=== PATIENT | male | born 1960 | race Caucasian/White ===

== ENCOUNTER → 2025-06-06 | Outpatient (CLI) | payer MEDICARE, OTHER, SELFPAY ==
--- NOTE | 2025-06-06 12:54 | ECHOD_ITS ---
Reason For Study Reason For Study: DYSPNEA/SOB Procedure This was a 2D Doppler, Color Flow transthoracic echocardiogram. Exam performed in department. Left Ventricle Normal LV size. Left ventricular systolic function is normal. The left ventricular ejection fraction is 60 %. Stage 1 diastolic dysfunction. No regional wall motion abnormalities noted. Right Ventricle Normal RV size. Normal systolic function. Atria Normal left atrium. Normal right atrium. Mitral Valve Normal mitral valve. Tricuspid Valve Normal tricuspid valve. Mild (1+) tricuspid valve insufficiency. Pulmonary artery systolic pressure is 24 mmHg. Aortic Valve Trisinus/trileaflet aortic valve. Moderate focal aortic valve calcification. Peak aortic valve gradient 15 mmHg. Mean aortic valve gradient 8 mmHg. Mild (1+) aortic valve insufficiency. Pulmonic Valve Normal pulmonic valve. Great Vessels Normal aortic root. The pulmonary artery is normal size. Inferior vena cava collapse with respiration. Pericardium/Pleural No pericardial effusion. MMode/2D Measurements & Calculations LVIDd: 5.0 cm IVSd: 1.0 cm LVOT diam: 2.0 cm LVIDs: 3.4 cm LVPWd: 1.0 cm LVOT area: 3.1 cm2 RVDd: 3.7 cm FS: 33.0 % Ao root diam: 3.2 cm LAV(MOD-bp): 56.4 ml LVAd ap4: 25.3 cm2 LAV(MOD-bp) Indexed: 27.8 ml/m2 LVLd ap4: 7.7 cm LAV(MOD-sp2): 52.5 ml EDV(MOD-sp4): 70.1 ml LAV(MOD-sp4): 52.4 ml EDV(sp4-el): 70.9 ml LVAs ap4: 14.3 cm2 LVLs ap4: 6.3 cm ESV(MOD-sp4): 30.0 ml ESV(sp4-el): 27.5 ml EF(MOD-sp4): 57.2 % EF(sp4-el): 61.3 % SV(MOD-sp4): 40.1 ml SV(sp4-el): 43.5 ml LA A4 area: 18.9 cm2 SI(MOD-sp4): 19.8 ml/m2 LA dimension(2D): 4.5 cm RA A4 area: 15.3 cm2 TAPSE: 1.8 cm Time Measurements MV dec time: 0.19 sec Doppler Measurements & Calculations MV E max willy: 87.3 cm/sec Lat Peak E' Willy: 10.0 cm/sec Med Peak E' Willy: 8.0 cm/sec MV A max willy: 95.9 cm/sec E/E' lat: 8.7 E/E' med: 11.0 MV E/A: 0.91 MV V2 max: 86.3 cm/sec MV P1/2t max willy: 81.5 cm/sec Ao V2 max: 195.3 cm/sec MV max P.0 mmHg MV P1/2t: 96.1 msec Ao max P.3 mmHg MV V2 mean: 49.5 cm/sec Ao V2 mean: 134.0 cm/sec MV mean P.1 mmHg MV dec slope: 248.5 cm/sec2 Ao mean P.0 mmHg MV V2 VTI: 31.0 cm MVA(P1/2t): 2.3 cm2 Ao V2 VTI: 42.7 cm AV (velocity ratio): 0.55 MVA(VTI): 2.4 cm2 MARKO(I,D): 1.7 cm2 MARKO(V,D): 1.6 cm2 AI max willy: 437.0 cm/sec LV V1 max: 102.6 cm/sec SV(LVOT): 72.9 ml AI max P.4 mmHg LV V1 max P.2 mmHg LV V1 mean P.3 mmHg AI dec slope: 184.3 cm/sec2 LV V1 mean: 72.9 cm/sec AI P1/2t: 694.5 msec LV V1 VTI: 23.4 cm PA V2 max: 95.1 cm/sec TR max willy: 224.1 cm/sec PA V2 mean: 66.4 cm/sec TR max P.1 mmHg ECHO/Echo Complete Interpretation Summary Normal LV size. Left ventricular systolic function is normal. The left ventricular ejection fraction is 60 %. Moderate focal aortic valve calcification. Mean aortic valve gradient 8 mmHg. Mild (1+) aortic valve insufficiency. Stage 1 diastolic dysfunction. Ordering Physician: Alvino Contreras Referring Physician: Twin Sims Performed By: Sienna Kinsey, RDCS, RVT
== END | disposition home or self-care (01) ==
LOC: CVS 12:53
PROVIDERS: PCP Student in an Organized Health Care Education/Training Program; Referring Provider Internal Medicine Critical Care Medicine; Visit Provider Internal Medicine Critical Care Medicine
DX: R06.09 Other forms of dyspnea (principal)
CPT/HCPCS: 93306